=== PATIENT | male | born 1975 | race Caucasian/White ===

== ENCOUNTER 2016-07-11 12:36 | Emergency (ER) | payer OTHER ==
[~2016-07-11] VITALS: Ht 180.3 cm; Wt 104.5 kg
[2016-07-11 12:36] VITALS: BP 173/97; PULSE 91; RESP 14; TEMP 97.8; O2SAT 98
--- NOTE | 2016-07-11 12:49 | PD ---
Physical Exam Date Seen by Provider: Jul 11, 2016 Time Seen by Provider: 12:47 Narrative 41 year old male presents to the emergency department for evaluation of a laceration to his right 2nd digit that occurred while working on a car. Patient awaiting bed placement. Data Data Last Documented VS Vital Signs Date Time Temp Pulse Resp B/P Pulse Ox O2 Delivery O2 Flow Rate FiO2 07/11/16 12:36 97.8 91 14 173/97 98 MDM Supervised Visit with SHANE: Samanta Moya Jul 11, 2016 12:49
--- NOTE | 2016-07-11 12:51 | PD ---
HPI . right 2nd digit laceration Chief Complaint: Laceration/Skin Injury Time Seen by Provider: 12:52 Travel History International Travel<30 days: Yes Contact w/Intl Traveler<30days: Yes Name of Country Traveled to: [place] Traveled to known affect area: No History of Present Illness HPI 41year-old here with complaints of right second digit laceration while working on his truck. He was tightening something when he accidentally cut his finger. He immediately cleaned it out. He has a laceration over the PIP of the right index. He is uncertain of his last tetanus. He has is right handed dominant and has no other issues. [facility] Social History Alcohol Use: No Tobacco Use: No Substance Use: No Allergies-Medications (Allergen,Severity, Reaction): Coded Allergies: No Known Allergies (Unverified , 07/11/16) Reported Meds & Prescriptions Reported Meds & Active Scripts Active Reported Phenergan (Promethazine HCl) 25 Mg Tab 25 Mg PO Q6H PRN Tramadol (Tramadol HCl) 50 Mg Tab 50 Mg PO Q6H PRN Review of Systems General / Constitutional: No: Fever Eyes: No: Visual changes HENT: No: Headaches Cardiovascular: No: Chest Pain or Discomfort Respiratory: No: Shortness of Breath Gastrointestinal: No: Abdominal Pain Genitourinary: No: Dysuria Musculoskeletal: No: Pain Skin: Positive Other (finger laceration ), No Rash Neurologic: No: Weakness Psychiatric: No: Depression Endocrine: No: Polydipsia Hematologic/Lymphatic: No: Easy Bruising Physical Exam Narrative GENERAL: AAO x 3, no acute distress, Well-nourished, well-developed patient. SKIN: Warm and dry. No visible rashes or bruising. Small 1.3 cm laceration over the PIP of the right index finger. HEAD: Normocephalic and atraumatic. EYES: No scleral icterus. No injection or drainage. EOM intact, PERRLA ENT: No nasal drainage noted. Mucous membranes pink. Airway patent. NECK: Supple, trachea midline. No JVD. CARDIOVASCULAR: Regular rate and rhythm without murmurs, gallops, or rubs. RESPIRATORY: Breath sounds equal bilaterally. No accessory muscle use. No rhonchi or rales. GASTROINTESTINAL: Abdomen soft, non-tender, nondistended. EXTREMITIES: No cyanosis or edema. Small laceration over the PIP of the right index finger. Joint is mobile. There is no deformity. No tendon visualized. Sensation and range of motion is normal BACK: Nontender without obvious deformity. No CVA tenderness. PSYCH: AAO x 3, normal affect. Data Data Last Documented VS Vital Signs Date Time Temp Pulse Resp B/P Pulse Ox O2 Delivery O2 Flow Rate FiO2 07/11/16 12:36 97.8 91 14 173/97 98 Orders Lidocaine 1% Inj (50 Ml) (Xylocaine 1% I (07/11/16 13:00) Tetanus/Diphtheria Tox Adult (Tetanus/Di (07/11/16 13:00) MDM Medical Decision Making Medical Screen Exam Complete: Yes Emergency Medical Condition: Yes Medical Record Reviewed: Yes Differential Diagnosis right index finger laceration, abrasion, less likely amputation Narrative Course 41year-old here with complaints of right second digit laceration while working on his truck. He was tightening something when he accidentally cut his finger. He immediately cleaned it out. He has a laceration over the PIP of the right index. He is uncertain of his last tetanus. He has is right handed dominant and has no other issues. Patient seen and examined. He has a small 1.3 cm laceration over the PIP of the right index. He gave consent for laceration repair with sutures. Patient tolerated without incident. 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 Discussed wound care. Tetanus vaccine administered. Advised suture removal in 7-10 days. Tylenol and Motrin as needed for pain. Patient verbalized understanding of instructions, questions were answered, and thanked me for their care. I advised them if their condition worsens, please return to the nearest emergency room for further care. Procedures Procedure Narrative LACERATION LOCATION: right index dorsum over PIP joint LENGTH: 1.3 cm NUMBER OF STITCHES/ROSALIO: 3 REPAIR: The area of the laceration was prepped with Betadine and sterilely draped. The laceration was infiltrated with 1% lidocaine. The wound was copiously irrigated and explored without evidence of foreign body, tendon injury or neurovascular injury. The wound was closed using 4-0 Ethilon with simple interrupted sutures. This was a single layer repair. A sterile dressing was applied. The patient was advised to keep the dressing clean and dry. Patient tolerated the procedure well. Diagnosis Primary Impression: Laceration of right index finger Patient Instructions: Acute Wound Care (ED), Finger Laceration (ED), General Instructions Additional Instructions: Keep area clean and dry. Use gauze as we discussed and change 1-2 times a day. Watch for signs of infection: fever, redness, swelling, warmth, pus or drainage , red streaks around the cut, and increased pain from the area. If you received a tetanus shot, you may experience tenderness at the injection site. This is normal. Please return to emergency department if your symptoms return or worsen. Follow up with your primary care provider. You can use Tylenol or Motrin as needed for pain. The sutures will need to be removed within 7-10 days. You can come here or follow-up with your primary care provider. Disposition: 01 DISCHARGE HOME Condition: Stable Jacquie Michael Jul 11, 2016 12:51
[2016-07-11] MEDS ORDERED: TRAM50TA PO (12:54)
[2016-07-11] MEDS ORDERED: PROM25TA5 PO (12:54)
[2016-07-11] MEDS ORDERED: TETANUS/DIPHTHERIA TOXOID ADULT 0.5 ML VIAL IM ONE (13:00)
[2016-07-11] MEDS ORDERED: LIDOCAINE HCL 1% 50 ML VIAL INFIL ONE (13:00)
== END 2016-07-11 14:55 | disposition home or self-care (01) ==
LOC: NEPK 12:36
DX: S61.210A Laceration without foreign body of right index finger without damage to nail, initial encounter (principal); W45.8XXA Other foreign body or object entering through skin, initial encounter; Y92.009 Unspecified place in unspecified non-institutional (private) residence as the place of occurrence of the external cause; Z23 Encounter for immunization
CPT/HCPCS: 12001; 90471; 90714

== ENCOUNTER 2017-12-21 13:46 | Observation (INO) ==
[2017-12-21] MEDS ORDERED: Sod Chloride 0.9% Inj 1,000 ML IV.SIG ONE (14:09)
--- NOTE | 2017-12-21 14:20 | ED ---
HPI General Chief Complaint: Overdose Stated Complaint: overdose Time Seen by Provider: 12/21/17 14:09 Source: patient, EMS, RN notes reviewed and old records reviewed Mode of arrival: EMS Limitations: other (drowsy) History of Present Illness HPI Narrative: 42-year-old male presents by ambulance for intentionally taking approximately 15 Ambien to try and hurt himself. He states he was maybe having chest pain but is not sure. He denies other complaints but is drowsy so history is limited. This occurred approximately 2 hours ago MD complaint: intentional overdose Related Data Home Medications Medication Instructions Recorded Confirmed amlodipine-benazepril 1 cap PO DAILY 12/21/17 12/21/17 amoxicillin 500 mg PO TID 12/21/17 12/21/17 azilsartan med-chlorthalidone 1 tab PO DAILY 12/21/17 12/21/17 [Edarbyclor] buspirone 5 mg PO BID 12/21/17 12/21/17 losartan 100 mg PO DAILY 12/21/17 12/21/17 montelukast 10 mg PO QPM 12/21/17 12/21/17 tramadol 50 mg PO Q6H PRN 12/21/17 12/21/17 Allergies Allergy/AdvReac Type Severity Reaction Status Date / Time No Known Allergies Allergy Unverified 12/21/17 14:06 Review of Systems ROS Unobtainable ROS Unobtainable: unobtainable due to mental status PMFSH Medical History Medical History Anxiety (Acute) Hypercholesteremia (Acute) Hypertension (Acute) Social History Social History Substance History: No History of Abuse Second Hand Smoke Exposure: No Smoking Status: Never smoker How Often Do You Have a Drink Containing Alcohol: Monthly or less Recent Travel in [facility] within the Last 8 Weeks: No Recent Out of Country Travel within the Last 8 Weeks: No Immunization History Tetanus Immunization: <5 Years Hx Influenza Vaccine This Season: No Exam Narrative Exam Narrative: GENERAL: 42 y/o male whos drowsy but opens eyes to voice SKIN: Focused skin assessment warm/dry. HEAD: Atraumatic. Normocephalic. EYES: Pupils equal and round. No scleral icterus. No injection or drainage. ENT: No nasal bleeding or discharge. Mucous membranes pink and moist. NECK: Trachea midline. No JVD. CARDIOVASCULAR: Regular rate and rhythm. No murmur appreciated. RESPIRATORY: No accessory muscle use. Clear to auscultation. Breath sounds equal bilaterally. GASTROINTESTINAL: Abdomen soft, non-tender, nondistended. MUSCULOSKELETAL: No obvious deformities. No clubbing. No cyanosis. No edema. NEUROLOGICAL: Awake. moves all extremities, slurred speech Course Reevaluation(s) Reevaluation #1: patient still confused and pulling at monitor, will observe overnight for further medical clearance Consultations Consultation #1: dr joseph agrees to admit Initial Documented Vital Signs Temperature 98.5 F 12/21/17 14:06 Pulse Rate 123 H 12/21/17 14:06 Respiratory Rate 20 12/21/17 14:06 Blood Pressure 154/94 H 12/21/17 14:06 Pulse Oximetry 95 12/21/17 14:06 Last Documented Vital Signs Temperature 98.5 F 12/21/17 14:06 Pulse Rate 113 H 12/21/17 15:05 Respiratory Rate 22 12/21/17 15:05 Blood Pressure 127/88 12/21/17 15:05 Pulse Oximetry 95 12/21/17 15:[address] [facility] Narrative Medical decision making narrative: will check labs and monitor, xavier act placed Medical Screen Exam Complete: Yes Emergency Medical Condition: Yes Differential Diagnosis Differential Diagnosis: overdose, co-ingestion, electrolyte Lab Data Lab results reviewed: Yes I reviewed the patient's lab results. Result diagrams: 12/21/17 14:17 12/21/17 14:17 Lab Results 12/21/17 12/21/17 12/21/17 Range/Units 14:17 14:17 14:17 WBC 10.2 (4.0-11.0) th/mm3 RBC 5.68 (4.50-5.90) mil/mm3 Hgb 15.6 (13.0-17.0) gm/dL Hct 48.1 (39.0-51.0) % MCV 84.6 (80.0-100.0) fL MCH 27.5 (27.0-34.0) pg MCHC 32.5 (32.0-36.0) % RDW 13.4 (11.6-17.2) % Plt Count 266 (150-450) th/mm3 MPV 7.5 (7.0-11.0) fL Neut % (Auto) 70.2 H (16.0-70.0) % Lymph % (Auto) 18.3 (9.0-44.0) % [place] % (Auto) 8.1 H (0.0-8.0) % Eos % (Auto) 2.9 (0.0-4.0) % Baso % (Auto) 0.5 (0.0-2.0) % Neut # (Auto) 7.1 (1.8-7.7) th/mm3 Lymph # (Auto) 1.9 (1.0-4.8) th/mm3 [place] # (Auto) 0.8 (0.0-0.9) th/mm3 Eos # (Auto) 0.3 (0.0-0.4) th/mm3 Baso # (Auto) 0.1 (0.0-0.2) th/mm3 WBC Differential . Differential Comment Auto diff final PT 10.6 (9.8-11.6) sec INR 1.0 Ratio Sodium 140 (136-145) meq/L Potassium 4.2 (3.5-5.1) meq/L Chloride 106 (98-107) meq/L Carbon Dioxide 25.1 (21.0-32.0) meq/L Anion Gap 9 (5-15) meq/L BUN 15 (7-18) mg/dL Creatinine 1.27 (0.60-1.30) mg/dL Estimated GFR 62 L (>89) mL/min Random Glucose 104 (74-106) mg/dL Calcium 9.2 (8.5-10.1) mg/dL Total Bilirubin 0.2 (0.2-1.0) mg/dL AST 25 (15-37) U/L ALT 32 (12-78) U/L Alkaline Phosphatase 71 (45-117) U/L Total Creatine Kinase (39-308) U/L CK-MB (CK-2) (0.5-3.6) ng/mL Troponin I (0.02-0.05) ng/mL Total Protein 7.9 (6.4-8.2) g/dL Albumin 4.0 (3.4-5.0) g/dL Urine Color (Yellw/Straw) Urine Clarity (Clear) Urine pH (5.0-8.5) Ur Specific [place] (1.002-1.035) Urine Protein (Neg-Trace) mg/dL Urine Glucose (UA) (Negative) mg/dL Urine Ketones (Negative) mg/dL Urine Occult Blood (Negative) Urine Nitrate (Negative) Urine Bilirubin (Negative) Urine Urobilinogen (Less than 2) mg/dL Ur Leukocyte Esterase (Negative) Micro UA Comment Ur Microscopic Review Urine Culture Comments Salicylates (2.8-20.0) mg/dL Urine Opiates Screen (Neg) Acetaminophen Less than 2.0 L (10.0-30.0) mcg/mL Ur Barbiturates Screen (Neg) Ur Amphetamines Screen (Neg) U Benzodiazepines Scrn (Neg) Urine Cocaine Screen (Neg) U Cannabinoids Screen (Neg) Serum Alcohol Less than 3 (0-5) mg/dL 12/21/17 12/21/17 12/21/17 Range/Units 14:17 14:17 15:14 WBC (4.0-11.0) th/mm3 RBC (4.50-5.90) mil/mm3 Hgb (13.0-17.0) gm/dL Hct (39.0-51.0) % MCV (80.0-100.0) fL MCH (27.0-34.0) pg MCHC (32.0-36.0) % RDW (11.6-17.2) % Plt Count (150-450) th/mm3 MPV (7.0-11.0) fL Neut % (Auto) (16.0-70.0) % Lymph % (Auto) (9.0-44.0) % [place] % (Auto) (0.0-8.0) % Eos % (Auto) (0.0-4.0) % Baso % (Auto) (0.0-2.0) % Neut # (Auto) (1.8-7.7) th/mm3 Lymph # (Auto) (1.0-4.8) th/mm3 [place] # (Auto) (0.0-0.9) th/mm3 Eos # (Auto) (0.0-0.4) th/mm3 Baso # (Auto) (0.0-0.2) th/mm3 WBC Differential Differential Comment PT (9.8-11.6) sec INR Ratio Sodium (136-145) meq/L Potassium (3.5-5.1) meq/L Chloride (98-107) meq/L Carbon Dioxide (21.0-32.0) meq/L Anion Gap (5-15) meq/L BUN (7-18) mg/dL Creatinine (0.60-1.30) mg/dL Estimated GFR (>89) mL/min Random Glucose (74-106) mg/dL Calcium (8.5-10.1) mg/dL Total Bilirubin (0.2-1.0) mg/dL AST (15-37) U/L ALT (12-78) U/L Alkaline Phosphatase (45-117) U/L Total Creatine Kinase 122 (39-308) U/L CK-MB (CK-2) Less than 1.0 (0.5-3.6) ng/mL Troponin I Less than 0.02 L (0.02-0.05) ng/mL Total Protein (6.4-8.2) g/dL Albumin (3.4-5.0) g/dL Urine Color (Yellw/Straw) Urine Clarity (Clear) Urine pH (5.0-8.5) Ur Specific [place] (1.002-1.035) Urine Protein (Neg-Trace) mg/dL Urine Glucose (UA) (Negative) mg/dL Urine Ketones (Negative) mg/dL Urine Occult Blood (Negative) Urine Nitrate (Negative) Urine Bilirubin (Negative) Urine Urobilinogen (Less than 2) mg/dL Ur Leukocyte Esterase (Negative) Micro UA Comment Ur Microscopic Review Urine Culture Comments Salicylates Less than 1.7 L (2.8-20.0) mg/dL Urine Opiates Screen Neg (Neg) Acetaminophen (10.0-30.0) mcg/mL Ur Barbiturates Screen Neg (Neg) Ur Amphetamines Screen Neg (Neg) U Benzodiazepines Scrn Neg (Neg) Urine Cocaine Screen Neg (Neg) U Cannabinoids Screen Neg (Neg) Serum Alcohol (0-5) mg/dL 12/21/17 Range/Units 15:14 WBC (4.0-11.0) th/mm3 RBC (4.50-5.90) mil/mm3 Hgb (13.0-17.0) gm/dL Hct (39.0-51.0) % MCV (80.0-100.0) fL MCH (27.0-34.0) pg MCHC (32.0-36.0) % RDW (11.6-17.2) % Plt Count (150-450) th/mm3 MPV (7.0-11.0) fL Neut % (Auto) (16.0-70.0) % Lymph % (Auto) (9.0-44.0) % [place] % (Auto) (0.0-8.0) % Eos % (Auto) (0.0-4.0) % Baso % (Auto) (0.0-2.0) % Neut # (Auto) (1.8-7.7) th/mm3 Lymph # (Auto) (1.0-4.8) th/mm3 [place] # (Auto) (0.0-0.9) th/mm3 Eos # (Auto) (0.0-0.4) th/mm3 Baso # (Auto) (0.0-0.2) th/mm3 WBC Differential Differential Comment PT (9.8-11.6) sec INR Ratio Sodium (136-145) meq/L Potassium (3.5-5.1) meq/L Chloride (98-107) meq/L Carbon Dioxide (21.0-32.0) meq/L Anion Gap (5-15) meq/L BUN (7-18) mg/dL Creatinine (0.60-1.30) mg/dL Estimated GFR (>89) mL/min Random Glucose (74-106) mg/dL Calcium (8.5-10.1) mg/dL Total Bilirubin (0.2-1.0) mg/dL AST (15-37) U/L ALT (12-78) U/L Alkaline Phosphatase (45-117) U/L Total Creatine Kinase (39-308) U/L CK-MB (CK-2) (0.5-3.6) ng/mL Troponin I (0.02-0.05) ng/mL Total Protein (6.4-8.2) g/dL Albumin (3.4-5.0) g/dL Urine Color Yellow (Yellw/Straw) Urine Clarity Clear (Clear) Urine pH 7.0 (5.0-8.5) Ur Specific [place] 1.012 (1.002-1.035) Urine Protein Negative (Neg-Trace) mg/dL Urine Glucose (UA) Negative (Negative) mg/dL Urine Ketones Negative (Negative) mg/dL Urine Occult Blood Negative (Negative) Urine Nitrate Negative (Negative) Urine Bilirubin Negative (Negative) Urine Urobilinogen Less than 2 (Less than 2) mg/dL Ur Leukocyte Esterase Negative (Negative) Micro UA Comment Culture not ind Ur Microscopic Review Not Reportable Urine Culture Comments Culture not ind Salicylates (2.8-20.0) mg/dL Urine Opiates Screen (Neg) Acetaminophen (10.0-30.0) mcg/mL Ur Barbiturates Screen (Neg) Ur Amphetamines Screen (Neg) U Benzodiazepines Scrn (Neg) Urine Cocaine Screen (Neg) U Cannabinoids Screen (Neg) Serum Alcohol (0-5) mg/dL Imaging Data Attestation: I personally reviewed and interpreted this imaging study as follows : ECG Data Attestation: I personally reviewed and interpreted this ECG as follows: Interpretation: Sinus tachycardia at 120, no ST segment elevation or consecutive T-wave inversion Discharge Plan Discharge Disposition Patient Disposition: 30 Still Patient Discharge Condition Condition: Stable Discharge Details Diagnosis: Drug overdose Physicians Team ED Provider: Africa Quesada Primary Care Provider: UNKNOWN, Attending Provider: Zuly Joseph Status ED Status: Admitted Observation Patient
[2017-12-21] MEDS ORDERED: Sod Chloride 0.9% Inj 1,000 ML IV.SIG SCH (14:30)
[2017-12-21 14:39] LABS: Baso # (Auto) 0.1 th/mm3 (0.0-0.2); Baso % (Auto) 0.5 % (0.0-2.0); Eos # (Auto) 0.3 th/mm3 (0.0-0.4); Eos % (Auto) 2.9 % (0.0-4.0); Hematocrit 48.1 % (39.0-51.0); Hemoglobin 15.6 gm/dL (13.0-17.0); Lymph # (Auto) 1.9 th/mm3 (1.0-4.8); Lymph % (Auto) 18.3 % (9.0-44.0); Mean Corpuscular HGB Conc 32.5 % (32.0-36.0); Mean Corpuscular Hemoglobin 27.5 pg (27.0-34.0); Mean Corpuscular Volume 84.6 fL (80.0-100.0); Mean Platelet Volume 7.5 fL (7.0-11.0); Mono # (Auto) 0.8 th/mm3 (0.0-0.9); Mono % (Auto) 8.1 % (0.0-8.0); Neut # (Auto) 7.1 th/mm3 (1.8-7.7); Neut % (Auto) 70.2 % (16.0-70.0); Platelet Count 266 th/mm3 (150-450); Red Blood Count 5.68 mil/mm3 (4.50-5.90); Red Cell Distribution Width 13.4 % (11.6-17.2); White Blood Count 10.2 th/mm3 (4.0-11.0)
[2017-12-21 14:50] LABS: Prothrombin Time 10.6 sec (9.8-11.6)
[2017-12-21 15:09] LABS: Alanine Aminotransferase 32 U/L (12-78)
[2017-12-21 15:11] LABS: Alkaline Phosphatase 71 U/L (45-117); Total Protein 7.9 g/dL (6.4-8.2)
[2017-12-21 15:17] LABS: Anion Gap 9 meq/L (5-15); Aspartate Aminotransferase 25 U/L (15-37); Blood Urea Nitrogen 15 mg/dL (7-18); Calcium 9.2 mg/dL (8.5-10.1); Carbon Dioxide 25.1 meq/L (21.0-32.0); Chloride 106 meq/L (98-107); Glomerular Filtration Rate 62 mL/min (>89); Glucose,Random 104 mg/dL (74-106); Potassium 4.2 meq/L (3.5-5.1); Sodium 140 meq/L (136-145)
[2017-12-21 15:21] LABS: Creatine Kinase 122 U/L (39-308)
[2017-12-21 15:49] LABS: Bilirubin,Urine Negative (Negative); Clarity,Urine Clear (Clear); Color,Urine Yellow (Yellw/Straw); Glucose,Urine (UA) Negative (Negative); Leukocyte Esterase,Urine Negative (Negative); Nitrite,Urine Negative (Negative); Specific Gravity,Urine 1.012 (1.002-1.035)
[2017-12-21 15:53] LABS: Amphetamine Screen,Urine Neg (Neg); Barbiturate Screen,Urine Neg (Neg); Cannabinoid Screen,Urine Neg (Neg); Cocaine Screen,Urine Neg (Neg)
[2017-12-21 15:54] LABS: Opiate Screen,Urine Neg (Neg)
[2017-12-21] MEDS ORDERED: Bisacodyl 10 MG Supp RECTAL PRN (17:03)
[2017-12-21] MEDS: Sod Chloride 0.9% Inj 1,000 ML IV.CONT SCH (18:27)
[2017-12-21] MEDS: Enoxaparin Inj 40 MG/0.4 ML Syringe SQ SCH (18:27)
--- NOTE | 2017-12-21 19:28 | P.HP ---
History of Present Illness Primary Care Physician: UNKNOWN Chief Complaint: OD laura , accidentally per patient History of Present Illness: The patient is a pleasant 42-year-old male with past medical history of hypertension, stomach ulcers, insomnia, who presented to the emergency room for further evaluation after he ingested accidentally Ambien patient says when he tried to take him his Ambien many years coming out from the bottle accidentally he ingested all. Patient says she did not try to hurt himself. He does not have any suicidal homicidal ideation. Depressed. Does not have up psychiatry Dr. He states he was maybe having chest pain but is not sure. He denies other complaints was noted drowsy on admission. This occurred approximately 2 hours prior to coming to the emergency room. The patient is awake and alert. Following commands. Speech is normal. Review of Systems All other systems reviewed negative except as stated in HPI PMFSH - History History Provided By: Patient - Medical History Medical History: Medical History (Last Reviewed 12/21/17 @ 19:19 by Zuly Campos MD) Anxiety Hypercholesteremia Hypertension - Surgical History Surgical History: Surgical History (Last Reviewed 12/21/17 @ 19:19 by Zuly Campos MD) No history of previous surgery (Acute) - Family History Family History: Family History (Last Reviewed 12/21/17 @ 19:19 by Zuly Campos MD) Mother Hypertension Throat cancer Mother Hyperlipidemia - Tobacco History Second Hand Smoke Exposure: No Smoking Status: Never smoker - Alcohol History How Often Do You Have a Drink Containing Alcohol: Never - Substance Use History Substance History: No History of Abuse - Travel History Recent Travel in the [place] Within the Last 8 Weeks: No Recent Travel Out of the Country Within the Last 8 Weeks: No - Immunization History Tetanus Immunization: <5 Years Hx Influenza Vaccine This Season: No Medications and Allergies Active Medications: Active Medications Al Hydroxide/Mg Hydroxide (Milk Of Jose Liq) 30 ml PO Q12H PRN PRN Reason: Mild Constipation Bisacodyl (Dulcolax Supp) 10 mg RECTAL DAILY PRN PRN Reason: SEVERE CONSITIPATION Enoxaparin Sodium (Lovenox Inj) 40 mg SQ Q24H [facility] Last Admin: 12/21/17 18:27 Dose: 40 mg Sodium Chloride (Ns Inj) 1,000 mls @ 0 mls/hr IV.SIG BOLUS [facility] Last Infusion: 12/21/17 16:15 Dose: Infused Sodium Chloride (Ns Inj) 1,000 mls @ 100 mls/hr IV.CONT .Q10H [facility] Last Admin: 12/21/17 18:27 Dose: 100 mls/hr Lactulose (Lactulose Liq) 30 ml PO DAILY PRN PRN Reason: SEVERE CONSITIPATION Ondansetron HCl (Zofran Inj) 4 mg IV.PUSH Q6H PRN PRN Reason: NAUSEA OR VOMITING Senna/Docusate Sodium (Rebecca-Colace) 1 tab PO BID [facility] Sennosides (Senokot) 17.2 mg PO Q12H PRN PRN Reason: Moderate Constipation Allergies Allergy/AdvReac Type Severity Reaction Status Date / Time No Known Allergies Allergy Unverified 12/21/17 14:06 Home Medications Medication Instructions Recorded Confirmed Type amlodipine-benazepril 1 cap PO DAILY 12/21/17 12/21/17 History amoxicillin 500 mg PO TID 12/21/17 12/21/17 History azilsartan med-chlorthalidone 1 tab PO DAILY 12/21/17 12/21/17 History [Edarbyclor] buspirone 5 mg PO BID 12/21/17 12/21/17 History losartan 100 mg PO DAILY 12/21/17 12/21/17 History montelukast 10 mg PO QPM 12/21/17 12/21/17 History tramadol 50 mg PO Q6H PRN 12/21/17 12/21/17 History Exam Vital signs: Vital Signs 12/21/17 14:06 12/21/17 14:30 12/21/17 15:05 Temperature 98.5 F Pulse Rate 123 H 113 H Respiratory Rate 20 22 Blood Pressure 154/94 H 127/88 Pulse Oximetry 95 95 95 12/21/17 17:05 12/21/17 18:56 Temperature 98.6 F 97.7 F Pulse Rate 106 H 96 H Respiratory Rate 22 20 Blood Pressure 177/102 H 142/89 H Pulse Oximetry 98 96 Intake & Output 12/21/17 12/21/17 12/22/17 06:59 18:59 06:59 Intake Total 1999 Balance 1999 Weight 104.326 kg Intake: IV 1999 NS Inj 1,000 ML @ Wide Open IV. 1999 SIG BOLUS [facility] Rx#:[id number] Other: Date of Last Bowel Movement 12/21/17 Narrative: GENERAL: Pleasant 42-year-old male awake and alert appears to not acute distress. SKIN: Warm and dry. HEAD: Atraumatic. Normocephalic. EYES: Pupils equal and round. No scleral icterus. No injection or drainage. ENT: No nasal bleeding or discharge. Mucous membranes pink and moist. NECK: Trachea midline. No JVD. CARDIOVASCULAR: Regular rate and rhythm. RESPIRATORY: No accessory muscle use. Clear to auscultation. Breath sounds equal bilaterally. GASTROINTESTINAL: Abdomen soft, non-tender, nondistended. Hepatic and splenic margins not palpable. MUSCULOSKELETAL: Extremities without clubbing, cyanosis, or edema. No obvious deformities. NEUROLOGICAL: Awake and alert. Oriented by 4 no obvious cranial nerve deficits. Motor grossly within normal limits. Five out of 5 muscle strength in the arms and legs. Normal speech. PSYCHIATRIC: Appropriate mood and affect; insight and judgment normal. Results - Labs CBC & Chem 7: 12/21/17 14:17 12/21/17 14:17 Labs: Laboratory Results - last 24 hr 12/21/17 12/21/17 12/21/17 14:17 14:17 14:17 WBC 10.2 RBC 5.68 Hgb 15.6 Hct 48.1 MCV 84.6 MCH 27.5 MCHC 32.5 RDW 13.4 Plt Count 266 MPV 7.5 Neut % (Auto) 70.2 H Lymph % (Auto) 18.3 [place] % (Auto) 8.1 H Eos % (Auto) 2.9 Baso % (Auto) 0.5 Neut # (Auto) 7.1 Lymph # (Auto) 1.9 [place] # (Auto) 0.8 Eos # (Auto) 0.3 Baso # (Auto) 0.1 WBC Differential . Differential Comment Auto diff final PT 10.6 INR 1.0 Sodium 140 Potassium 4.2 Chloride 106 Carbon Dioxide 25.1 Anion Gap 9 BUN 15 Creatinine 1.27 Estimated GFR 62 L Random Glucose 104 Calcium 9.2 Total Bilirubin 0.2 AST 25 ALT 32 Alkaline Phosphatase 71 Total Creatine Kinase CK-MB (CK-2) Troponin I Total Protein 7.9 Albumin 4.0 Urine Color Urine Clarity Urine pH Ur Specific [place] Urine Protein Urine Glucose (UA) Urine Ketones Urine Occult Blood Urine Nitrate Urine Bilirubin Urine Urobilinogen Ur Leukocyte Esterase Micro UA Comment Ur Microscopic Review Urine Culture Comments Salicylates Urine Opiates Screen Acetaminophen Less than 2.0 L Ur Barbiturates Screen Ur Amphetamines Screen U Benzodiazepines Scrn Urine Cocaine Screen U Cannabinoids Screen Serum Alcohol Less than 3 12/21/17 12/21/17 12/21/17 14:17 14:17 15:14 WBC RBC Hgb Hct MCV MCH MCHC RDW Plt Count MPV Neut % (Auto) Lymph % (Auto) [place] % (Auto) Eos % (Auto) Baso % (Auto) Neut # (Auto) Lymph # (Auto) [place] # (Auto) Eos # (Auto) Baso # (Auto) WBC Differential Differential Comment PT INR Sodium Potassium Chloride Carbon Dioxide Anion Gap BUN Creatinine Estimated GFR Random Glucose Calcium Total Bilirubin AST ALT Alkaline Phosphatase Total Creatine Kinase 122 CK-MB (CK-2) Less than 1.0 Troponin I Less than 0.02 L Total Protein Albumin Urine Color Urine Clarity Urine pH Ur Specific [place] Urine Protein Urine Glucose (UA) Urine Ketones Urine Occult Blood Urine Nitrate Urine Bilirubin Urine Urobilinogen Ur Leukocyte Esterase Micro UA Comment Ur Microscopic Review Urine Culture Comments Salicylates Less than 1.7 L Urine Opiates Screen Neg Acetaminophen Ur Barbiturates Screen Neg Ur Amphetamines Screen Neg U Benzodiazepines Scrn Neg Urine Cocaine Screen Neg U Cannabinoids Screen Neg Serum Alcohol 12/21/17 15:14 WBC RBC Hgb Hct MCV MCH MCHC RDW Plt Count MPV Neut % (Auto) Lymph % (Auto) [place] % (Auto) Eos % (Auto) Baso % (Auto) Neut # (Auto) Lymph # (Auto) [place] # (Auto) Eos # (Auto) Baso # (Auto) WBC Differential Differential Comment PT INR Sodium Potassium Chloride Carbon Dioxide Anion Gap BUN Creatinine Estimated GFR Random Glucose Calcium Total Bilirubin AST ALT Alkaline Phosphatase Total Creatine Kinase CK-MB (CK-2) Troponin I Total Protein Albumin Urine Color Yellow Urine Clarity Clear Urine pH 7.0 Ur Specific [place] 1.012 Urine Protein Negative Urine Glucose (UA) Negative Urine Ketones Negative Urine Occult Blood Negative Urine Nitrate Negative Urine Bilirubin Negative Urine Urobilinogen Less than 2 Ur Leukocyte Esterase Negative Micro UA Comment Culture not ind Ur Microscopic Review Not Reportable Urine Culture Comments Culture not ind Salicylates Urine Opiates Screen Acetaminophen Ur Barbiturates Screen Ur Amphetamines Screen U Benzodiazepines Scrn Urine Cocaine Screen U Cannabinoids Screen Serum Alcohol Caprini VTE Risk Assessment Caprini VTE Risk Assessment: Moderate/High Risk (score >= 2) Caprini Risk Assessment Model: Point Value = 1 Point Value = 2 Point Value = 3 Point Value = 5 Age 41-60 Minor surgery BMI > 25 kg/m2 Swollen legs Varicose veins or History of unexplained or recurrent spontaneous Oral contraceptives or hormone replacement Sepsis (< 1 month) Serious lung disease, including pneumonia (< 1 month) Abnormal pulmonary function Acute myocardial infarction Congestive heart failure (< 1 month) History of inflammatory bowel disease Medical patient at bed rest Age 61-74 Arthroscopic surgery Major open surgery (> 45 min) Laparoscopic surgery (> 45 min) Malignancy Confined to bed (> 72 hours) Immobilizing plaster cast Central venous access Age >= 75 History of VTE Family history of VTE Factor V Leiden Prothrombin [id number] Lupus anticoagulant Anticardiolipin antibodies Elevated serum homocysteine Heparin-induced thrombocytopenia Other congenital or acquired thrombophilia Stroke (< 1 month) Elective arthroplasty Hip, pelvis, or leg fracture Acute spinal cord injury (< 1 month) Prophylaxis Regimen: Total Risk Factor Score Risk Level Prophylaxis Regimen 0-1 Low Early ambulation 2 Moderate Order ONE of the following: *Sequential Compression Device (SCD) *Heparin 5000 units SQ BID 3-4 Higher Order ONE of the following medications: *Heparin 5000 units SQ TID *Enoxaparin/Lovenox 40 mg SQ daily (WT < 150 kg, CrCl > 30 mL/min) *Enoxaparin/Lovenox 30 mg SQ daily (WT < 150 kg, CrCl > 10-29 mL/min) *Enoxaparin/Lovenox 30 mg SQ BID (WT < 150 kg, CrCl > 30 mL/min) AND/OR *Sequential Compression Device (SCD) 5 or more Highest Order ONE of the following medications: *Heparin 5000 units SQ TID (Preferred with Epidurals) *Enoxaparin/Lovenox 40 mg SQ daily (WT < 150 kg, CrCl > 30 mL/min) *Enoxaparin/Lovenox 30 mg SQ daily (WT < 150 kg, CrCl > 10-29 mL/min) *Enoxaparin/Lovenox 30 mg SQ BID (WT < 150 kg, CrCl > 30 mL/min) AND *Sequential Compression Device (SCD) Assessment and Plan - Plan 42-year-old male with Acute ambien overdose, per patient accidentally Acute encephalopathy on arrival in the emergency room however patient improved is alert and oriented by 4 Do Neurochecks Monitor patient on telemetry as noted tachycardic EKG: Sinus tachycardia at 120, no ST segment elevation or consecutive T-wave inversion HTN, anxiety, insomnia Restart home meds as appropriate Hold narcotics or benzos DVT ppx scd/teds Code Status: full code Discussed Condition With: pt, nurse, ED physician
[2017-12-21] MEDS: Senna/Docusate Sodium 8.6/50 MG Tablet PO SCH (22:05)
[2017-12-22] MEDS: Sod Chloride 0.9% Inj 1,000 ML IV.CONT SCH ×2 (03:50→17:30)
[2017-12-22 07:05] LABS: Baso % (Auto) 0.5 % (0.0-2.0); Eos # (Auto) 0.6 th/mm3 (0.0-0.4); Eos % (Auto) 6.4 % (0.0-4.0); Hematocrit 43.4 % (39.0-51.0); Hemoglobin 14.6 gm/dL (13.0-17.0); Lymph # (Auto) 2.5 th/mm3 (1.0-4.8); Lymph % (Auto) 26.1 % (9.0-44.0); Mean Corpuscular HGB Conc 33.5 % (32.0-36.0); Mean Corpuscular Hemoglobin 27.9 pg (27.0-34.0); Mean Corpuscular Volume 83.3 fL (80.0-100.0); Mean Platelet Volume 7.5 fL (7.0-11.0); Mono # (Auto) 0.7 th/mm3 (0.0-0.9); Mono % (Auto) 7.3 % (0.0-8.0); Neut # (Auto) 5.8 th/mm3 (1.8-7.7); Neut % (Auto) 59.7 % (16.0-70.0); Platelet Count 240 th/mm3 (150-450); Red Blood Count 5.22 mil/mm3 (4.50-5.90); Red Cell Distribution Width 13.5 % (11.6-17.2); White Blood Count 9.8 th/mm3 (4.0-11.0)
[2017-12-22 07:43] LABS: Alanine Aminotransferase 31 U/L (12-78); Albumin 3.4 g/dL (3.4-5.0); Alkaline Phosphatase 68 U/L (45-117); Anion Gap 10 meq/L (5-15); Aspartate Aminotransferase 23 U/L (15-37); Blood Urea Nitrogen 11 mg/dL (7-18); Calcium 7.9 mg/dL (8.5-10.1); Carbon Dioxide 23.4 meq/L (21.0-32.0); Chloride 110 meq/L (98-107); Glomerular Filtration Rate 71 mL/min (>89); Glucose,Random 145 mg/dL (74-106); Sodium 143 meq/L (136-145); Total Protein 7.1 g/dL (6.4-8.2)
[2017-12-22 07:45] LABS: Potassium 3.6 meq/L (3.5-5.1)
--- NOTE | 2017-12-22 08:03 | ECG ---
Date Performed: 12/21/2017 Time Performed: 14:06:03 PTAGE: 42 years EKG: SINUS TACHYCARDIA BORDERLINE LEFT AXIS DEVIATION ABNORMAL RHYTHM ECG NO PREVIOUS TRACING FOR COMPARISON DOCTOR: Hayley Reyes Interpretating Date/Time 12/22/2017 08:02:41
--- NOTE | 2017-12-22 09:20 | P.PN ---
Subjective Interval history: Follow up for accidental ambien overdose and encephalopathy. The patient is currently awake, alert, oriented 4. He states taking multiple Ambien tablets was an accident. He denies feeling depressed or suicidal. He has no history of psychiatric illness or suicidal attempts. He wants to go home. He denies any headache, lightheadedness, dizziness, chest pain, shortness breath, or abdominal complaints. Patient reports he does have a history of chronic pancreatitis and gastric ulcers, takes medications for this at home, and follows with braided band assembler Dr. Aguila. Patient states he did have some epigastric discomfort yesterday, but denies any chest pain. He states the epigastric pain was typical of his heartburn and pancreatitis flares. He denies any chest or epigastric pain today, and he is tolerating oral intake without any nausea/vomiting. He has no other medical complaints at this time. Physical Exam Vital signs: Vital Signs 12/21/17 14:06 12/21/17 14:30 12/21/17 15:05 Temperature 98.5 F Pulse Rate 123 H 113 H Respiratory Rate 20 22 Blood Pressure 154/94 H 127/88 Pulse Oximetry 95 95 95 12/21/17 17:05 12/21/17 18:56 12/21/17 20:00 Temperature 98.6 F 97.7 F Pulse Rate 106 H 96 H Respiratory Rate 22 20 Blood Pressure 177/102 H 142/89 H Pulse Oximetry 98 96 96 12/21/17 23:32 12/22/17 04:00 12/22/17 08:09 Temperature 97.9 F 98.4 F 98.5 F Pulse Rate 88 74 89 Respiratory Rate 20 19 18 Blood Pressure 161/87 H 139/84 155/88 H Pulse Oximetry 94 L 92 L 91 L Intake & Output 12/21/17 12/22/17 12/22/17 18:59 06:59 18:59 Intake Total 1999 1000 / 1000 Balance 1999 1000 / 1000 Weight 104.326 kg Intake: IV 1999 / 999 NS Inj 1,000 ML @ 100 mls/hr IV 999 / 999 .CONT .Q10H [facility] Rx#:[id number] NS Inj 1,000 ML @ Wide Open IV. 1999 SIG BOLUS [facility] Rx#:[id number] Other: # Voids 2 Date of Last Bowel Movement 12/21/17 Narrative: GENERAL: Well-nourished, well-developed middle-aged male patient in NAD. SKIN: Warm and dry. No rash. HEENT: Normocephalic. Atraumatic. Pupils equal and round. Mucous membranes pink and moist. NECK: Supple. Trachea midline. CARDIOVASCULAR: Regular rate and rhythm. No murmur appreciated. RESPIRATORY: No accessory muscle use. Clear to auscultation. Breath sounds equal bilaterally. GASTROINTESTINAL: Abdomen soft, non-tender, nondistended. Normoactive bowel sounds x4. MUSCULOSKELETAL: No obvious deformities. Extremities without clubbing, cyanosis , or edema. NEUROLOGICAL: Awake and alert. No obvious cranial nerve deficits. Motor grossly within normal limits. Moving all extremities spontaneously. Normal speech. PSYCHIATRIC: Appropriate mood and affect; insight and judgment normal. Results - Labs CBC & Chem 7: 12/22/17 06:25 12/22/17 06:25 Laboratory Results - last 24 hr 12/21/17 12/21/17 12/21/17 14:17 14:17 14:17 WBC 10.2 RBC 5.68 Hgb 15.6 Hct 48.1 MCV 84.6 MCH 27.5 MCHC 32.5 RDW 13.4 Plt Count 266 MPV 7.5 Neut % (Auto) 70.2 H Lymph % (Auto) 18.3 [place] % (Auto) 8.1 H Eos % (Auto) 2.9 Baso % (Auto) 0.5 Neut # (Auto) 7.1 Lymph # (Auto) 1.9 [place] # (Auto) 0.8 Eos # (Auto) 0.3 Baso # (Auto) 0.1 WBC Differential . Differential Comment Auto diff final PT 10.6 INR 1.0 Sodium 140 Potassium 4.2 Chloride 106 Carbon Dioxide 25.1 Anion Gap 9 BUN 15 Creatinine 1.27 Estimated GFR 62 L Random Glucose 104 Calcium 9.2 Total Bilirubin 0.2 AST 25 ALT 32 Alkaline Phosphatase 71 Total Creatine Kinase CK-MB (CK-2) Troponin I Total Protein 7.9 Albumin 4.0 Urine Color Urine Clarity Urine pH Ur Specific [place] Urine Protein Urine Glucose (UA) Urine Ketones Urine Occult Blood Urine Nitrate Urine Bilirubin Urine Urobilinogen Ur Leukocyte Esterase Micro UA Comment Ur Microscopic Review Urine Culture Comments Salicylates Urine Opiates Screen Acetaminophen Less than 2.0 L Ur Barbiturates Screen Ur Amphetamines Screen U Benzodiazepines Scrn Urine Cocaine Screen U Cannabinoids Screen Serum Alcohol Less than 3 12/21/17 12/21/17 12/21/17 14:17 14:17 15:14 WBC RBC Hgb Hct MCV MCH MCHC RDW Plt Count MPV Neut % (Auto) Lymph % (Auto) [place] % (Auto) Eos % (Auto) Baso % (Auto) Neut # (Auto) Lymph # (Auto) [place] # (Auto) Eos # (Auto) Baso # (Auto) WBC Differential Differential Comment PT INR Sodium Potassium Chloride Carbon Dioxide Anion Gap BUN Creatinine Estimated GFR Random Glucose Calcium Total Bilirubin AST ALT Alkaline Phosphatase Total Creatine Kinase 122 CK-MB (CK-2) Less than 1.0 Troponin I Less than 0.02 L Total Protein Albumin Urine Color Urine Clarity Urine pH Ur Specific [place] Urine Protein Urine Glucose (UA) Urine Ketones Urine Occult Blood Urine Nitrate Urine Bilirubin Urine Urobilinogen Ur Leukocyte Esterase Micro UA Comment Ur Microscopic Review Urine Culture Comments Salicylates Less than 1.7 L Urine Opiates Screen Neg Acetaminophen Ur Barbiturates Screen Neg Ur Amphetamines Screen Neg U Benzodiazepines Scrn Neg Urine Cocaine Screen Neg U Cannabinoids Screen Neg Serum Alcohol 12/21/17 12/22/17 12/22/17 15:14 06:25 06:25 WBC 9.8 RBC 5.22 Hgb 14.6 Hct 43.4 MCV 83.3 MCH 27.9 MCHC 33.5 RDW 13.5 Plt Count 240 MPV 7.5 Neut % (Auto) 59.7 Lymph % (Auto) 26.1 [place] % (Auto) 7.3 Eos % (Auto) 6.4 H Baso % (Auto) 0.5 Neut # (Auto) 5.8 Lymph # (Auto) 2.5 [place] # (Auto) 0.7 Eos # (Auto) 0.6 H Baso # (Auto) 0.0 WBC Differential . Differential Comment Auto diff final PT INR Sodium 143 Potassium 3.6 Chloride 110 H Carbon Dioxide 23.4 Anion Gap 10 BUN 11 Creatinine 1.12 Estimated GFR 71 L Random Glucose 145 H Calcium 7.9 L D Total Bilirubin 0.3 AST 23 ALT 31 Alkaline Phosphatase 68 Total Creatine Kinase CK-MB (CK-2) Troponin I Total Protein 7.1 D Albumin 3.4 D Urine Color Yellow Urine Clarity Clear Urine pH 7.0 Ur Specific [place] 1.012 Urine Protein Negative Urine Glucose (UA) Negative Urine Ketones Negative Urine Occult Blood Negative Urine Nitrate Negative Urine Bilirubin Negative Urine Urobilinogen Less than 2 Ur Leukocyte Esterase Negative Micro UA Comment Culture not ind Ur Microscopic Review Not Reportable Urine Culture Comments Culture not ind Salicylates Urine Opiates Screen Acetaminophen Ur Barbiturates Screen Ur Amphetamines Screen U Benzodiazepines Scrn Urine Cocaine Screen U Cannabinoids Screen Serum Alcohol 12/22/17 06:25 WBC RBC Hgb Hct MCV MCH MCHC RDW Plt Count MPV Neut % (Auto) Lymph % (Auto) [place] % (Auto) Eos % (Auto) Baso % (Auto) Neut # (Auto) Lymph # (Auto) [place] # (Auto) Eos # (Auto) Baso # (Auto) WBC Differential Differential Comment PT INR Sodium Potassium Chloride Carbon Dioxide Anion Gap BUN Creatinine Estimated GFR Random Glucose Calcium Total Bilirubin AST ALT Alkaline Phosphatase Total Creatine Kinase CK-MB (CK-2) Troponin I Less than 0.02 L Total Protein Albumin Urine Color Urine Clarity Urine pH Ur Specific [place] Urine Protein Urine Glucose (UA) Urine Ketones Urine Occult Blood Urine Nitrate Urine Bilirubin Urine Urobilinogen Ur Leukocyte Esterase Micro UA Comment Ur Microscopic Review Urine Culture Comments Salicylates Urine Opiates Screen Acetaminophen Ur Barbiturates Screen Ur Amphetamines Screen U Benzodiazepines Scrn Urine Cocaine Screen U Cannabinoids Screen Serum Alcohol Assessment and Plan - Plan 42-year-old male with history of hypertension, hyperlipidemia, anxiety, chronic pancreatitis, gastric ulcers, GERD, presents after an accidental overdose on Ambien Ambien overdose with acute encephalopathy: Patient reports accidentally ingesting the rest of his Ambien from his pill bottle. Denies any depression or suicidal ideations. -UDS negative -Galarza act in place, sitter at bedside -Neuro checks, monitor on telemetry -EKG reviewed, shows sinus tachycardia, no acute ST changes -Patient now AAO 4 -Psychiatry consulted, awaiting evaluation Hypertension/Hyperlipidemia: chronic -continue patient's home medications -Monitor BP, adjust antihypertensives as needed Chronic Pancreatitis/GERD/Gastric Ulcers: chronic -no current GI complaints, tolerating oral intake -continue home meds -Continue outpatient f/up with braided band assembler Dr. Aguila DVT Prophylaxis: Lovenox sq Discharge Planning: The patient is medically stable. Await further evaluation by psychiatry. Discussed with Dr. Alvarado, recommends admission to inpatient psychiatry. The patient is medically stable for discharge to inpatient psych. Discharge patient to inpatient psychiatry unit Condition on discharge: Improved Cardiac Diet as tolerated Ad Tali activity Rx written: no new meds Follow-up with primary care physician within 1 week
[2017-12-22] MEDS ORDERED: Lisinopril 10 MG Tablet PO SCH (11:30)
[2017-12-22] MEDS ORDERED: amLODIPine 5 MG Tablet PO SCH (11:30)
[2017-12-22] MEDS: Senna/Docusate Sodium 8.6/50 MG Tablet PO SCH (11:49)
[2017-12-22 11:58] VITALS: RESP 16
--- NOTE | 2017-12-22 13:14 | P.CONPSY ---
Provisional Diagnosis Admission Date: December 21, 2017 16:43 [place] I.: 1. Adjustment reaction with disturbance of emotions and conduct [place] II.: Deferred History of Present Illness Service: Psychiatry Consult date: 12/22/17 Requesting Physician: Ani Hernandez Reason for Consult: Galarza Act, overdose Primary Care Provider: UNKNOWN Chief Complaint: OD ambien , accidentally per patient History of Present Illness: Mr. Little is a 42-year-old male with a reported childhood history of ADHD but no adult psychiatric history per his report who presented to the ED following an overdose on Ambien. It is documented in the ED provider notes that the patient took 15 Ambien intentionally in a suicide attempt. However according to the H&P from the medical attending, the patient reports that this ingestion was accidental. Patient was placed under Galarza act by the ED provider and placed in observation in the CDU. Reviewing the electronic medical record, I see no previous psychiatric contact within our system. Patient seen and examined. Chart reviewed. Case discussed with mid-level provider in the CDU. Sitter is at the bedside. On my examination today, the patient is calm and cooperative with exam. He tells me that he came home from work early and wanted to get some rest and so he took 3 extra Ambien CR 12.5 mg tablets. He says that he fell asleep and was subsequently discovered by his who reportedly had the patient brought in. He denies that ingestion was a suicide attempt. 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 He denies any depressive symptoms, nor can I elicit any hypomanic or manic symptoms. He denies any audiovisual hallucinations. I can elicit no delusional material. He does admit to chronic difficulties with sleep saying that he runs over business material in his head when he is trying to sleep. Remainder of the psychiatric ROS is negative. No acute physical complaints. Past psychiatric history: Patient reports a history of ADHD as a child. He says that he was seen by psychiatrists in this context as a child. He denies a history of psychiatric admissions or suicide attempts. Family history: Patient reports that his mother has depression. He denies a family history of substance use disorder or suicide. Chemical dependency history: The patient denies any abuse of drugs or alcohol. Social history: The patient lives with his . He has 4 children ages 21, 18 , 14 and 12. He has his GED and also trade school. 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 No reported PTSD symptoms. He denies any legal history. He does keep several firearms but has never had a suicide plan involving a gun. He is a Restorationist. With the patient's permission, I have obtained collateral information from his Uzma over the phone. Uzma is a somewhat reluctant historian saying "I worry that he is going to blame me. I do not want your decision to be based on her conversation." She reports that the patient did not take 3 Ambien but more likely took 25-27 Ambien. She thinks that he has been depressed recently. 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 She also notes that she does not think that he handles stress well. I spent about 23 minutes in telephone interview with Uzma. Review of Systems All other systems reviewed negative except as stated in HPI [facility] - History History Provided By: Patient - Medical History Medical History: Medical History (Last Reviewed 12/21/17 @ 19:19 by Zuly Campos MD) Anxiety Hypercholesteremia Hypertension - Surgical History Surgical History: Surgical History (Last Reviewed 12/21/17 @ 19:19 by Zuly Campos MD) No history of previous surgery (Acute) - Family History Family History: Family History (Last Reviewed 12/21/17 @ 19:19 by Zuly Campos MD) Mother Hypertension Throat cancer Mother Hyperlipidemia - Tobacco History Second Hand Smoke Exposure: No Smoking Status: Never smoker - Alcohol History How Often Do You Have a Drink Containing Alcohol: Never - Substance Use History Substance History: No History of Abuse - Travel History Recent Travel in the USA Within the Last 8 Weeks: No Recent Travel Out of the Country Within the Last 8 Weeks: No - Immunization History Tetanus Immunization: <5 Years Hx Influenza Vaccine This Season: No Medications and Allergies Active Medications: Active Medications Al Hydroxide/Mg Hydroxide (Milk Of Jose Frank) 30 ml PO Q12H PRN PRN Reason: Mild Constipation Amlodipine Besylate (Norvasc) 5 mg PO DAILY [facility] Last Admin: 12/22/17 11:50 Dose: 5 mg Bisacodyl (Dulcolax Supp) 10 mg RECTAL DAILY PRN PRN Reason: SEVERE CONSITIPATION Buspirone HCl (Buspar) 5 mg PO BID [facility] Last Admin: 12/22/17 11:50 Dose: 5 mg Enoxaparin Sodium (Lovenox Inj) 40 mg SQ Q24H [facility] Last Admin: 12/21/17 18:27 Dose: 40 mg Sodium Chloride (Ns Inj) 1,000 mls @ 0 mls/hr IV.SIG BOLUS [facility] Last Infusion: 12/21/17 16:15 Dose: Infused Sodium Chloride (Ns Inj) 1,000 mls @ 100 mls/hr IV.CONT .Q10H [facility] Last Admin: 12/22/17 03:50 Dose: 100 mls/hr Lactulose (Lactulose Liq) 30 ml PO DAILY PRN PRN Reason: SEVERE CONSITIPATION Lisinopril (Prinivil) 10 mg PO DAILY [facility] Last Admin: 12/22/17 11:50 Dose: 10 mg Ondansetron HCl (Zofran Inj) 4 mg IV.PUSH Q6H PRN PRN Reason: NAUSEA OR VOMITING Last Admin: 12/22/17 11:54 Dose: 4 mg Senna/Docusate Sodium (Rebecca-Colace) 1 tab PO BID [facility] Last Admin: 12/22/17 11:49 Dose: Not Given Sennosides (Senokot) 17.2 mg PO Q12H PRN PRN Reason: Moderate Constipation Allergies Allergy/AdvReac Type Severity Reaction Status Date / Time No Known Allergies Allergy Unverified 12/21/17 14:06 Home Medications Medication Instructions Recorded Confirmed Type amlodipine-benazepril 1 cap PO DAILY 12/21/17 12/21/17 History amoxicillin 500 mg PO TID 12/21/17 12/21/17 History azilsartan med-chlorthalidone 1 tab PO DAILY 12/21/17 12/21/17 History [Edarbyclor] buspirone 5 mg PO BID 12/21/17 12/21/17 History losartan 100 mg PO DAILY 12/21/17 12/21/17 History montelukast 10 mg PO QPM 12/21/17 12/21/17 History tramadol 50 mg PO Q6H PRN 12/21/17 12/21/17 History Exam Vital signs: Vital Signs 12/21/17 14:06 12/21/17 14:30 12/21/17 15:05 Temperature 98.5 F Pulse Rate 123 H 113 H Respiratory Rate 20 22 Blood Pressure 154/94 H 127/88 Pulse Oximetry 95 95 95 12/21/17 17:05 12/21/17 18:56 12/21/17 20:00 Temperature 98.6 F 97.7 F Pulse Rate 106 H 96 H Respiratory Rate 22 20 Blood Pressure 177/102 H 142/89 H Pulse Oximetry 98 96 96 12/21/17 23:32 12/22/17 04:00 12/22/17 08:09 Temperature 97.9 F 98.4 F 98.5 F Pulse Rate 88 74 89 Respiratory Rate 20 19 18 Blood Pressure 161/87 H 139/84 155/88 H Pulse Oximetry 94 L 92 L 91 L 12/22/17 11:57 Temperature 98.4 F Pulse Rate 78 Respiratory Rate 16 Blood Pressure 181/96 H Pulse Oximetry 96 Intake & Output 12/21/17 12/22/17 12/22/17 18:59 06:59 18:59 Intake Total 1999 1000 / 1000 Balance 1999 1000 / 1000 Weight 104.326 kg Intake: IV 1999 1000 / 1000 NS Inj 1,000 ML @ 100 mls/hr IV 1000 / 1000 .CONT .Q10H [facility] Rx#:[id number] NS Inj 1,000 ML @ Wide Open IV. 1999 SIG BOLUS [facility] Rx#:[id number] Other: # Voids 2 Date of Last Bowel Movement 12/21/17 Narrative: Physical examination completed by primary team attending. On my examination today, the patient appears to be in no acute physical distress. No signs of intoxication or withdrawal noted. Labs and vital signs reviewed. Mental Status Examination Appearance: Appropriate Consciousness: Alert Orientation: Person, Place (At least) Motor Activity: Other (No motor abnormalities noted) Speech: Unremarkable Language: Adequate Fund of Knowledge: Adequate Attention and Concentration: Adequate Memory: Unremarkable (Grossly intact on clinical exam) Mood: Appropriate Affect: Appropriate Thought Process & Associations: Intact Thought Content: Appropriate Hallucination Type: None Delusion Type: None Suicidal Ideation: No (Unclear whether patient is reliable to contract for safety) Suicidal Plan: No Suicidal Intention: No Homicidal Ideation: No Homicidal Plan: No Homicidal Intention: No Mental Status Exam Remarks: Insight and judgment are unclear Assessment and Plan - Assessment (1) Adjustment disorder with mixed disturbance of emotions and conduct Code(s): F43.25 - Adjustment disorder with mixed disturbance of emotions and conduct Status: Acute - Plan Plan: 42-year-old female with psychiatric history as detailed above who is presently in the CDU under a Galarza act following an Ambien overdose. Patient reports he only took a few extra tablets of Ambien but collateral information from patient' s indicates that the patient took far larger quantity. I fear that he is minimizing psychiatric symptomatology and also minimizing the extent and intent of his overdose, particularly in light of collateral information obtained from . I do not think it is appropriate to lift the Galarza act at this time, and the patient will require psychiatric hospitalization following medical clearance for observation for any ongoing impairments in safety. Recommend continuing a sitter while the patient is hospitalized in the CDU. Defer any medication management to the inpatient team. Case discussed with mid-level provider for the primary team. Thank you very much for this consultation. Please call or page with questions. Justification for Continued Inpatient Stay: See above
[2017-12-22] MEDS: Enoxaparin Inj 40 MG/0.4 ML Syringe SQ SCH (17:31)
[2017-12-22 20:01] VITALS: BP 138/97; PULSE 88; TEMP 98.7; O2SAT 97
== END 2017-12-22 20:57 ==
LOC: NEDA 13:46 → NEPE 13:46 → NEPFCDU 18:00
PROVIDERS: ADMIT Hospitalist; ATTEND Hospitalist

== ENCOUNTER 2017-12-22 17:54 | Inpatient (IN) ==
[2017-12-22] MEDS ORDERED: Aluminum/Magnesium/Simethacone Susp 30 ML UDC PO PRN ×2 (23:16→23:40)
[2017-12-22] MEDS ORDERED: Acetaminophen 325 MG Tablet PO PRN ×2 (23:16→23:40)
[2017-12-22 23:28] VITALS: RESP 16
[2017-12-23] MEDS: amLODIPine 5 MG Tablet PO SCH (08:12)
[2017-12-23] MEDS ORDERED: AZILSARTAN PO SCH (09:00)
[2017-12-23] MEDS ORDERED: CHLORTHALIDONE PO SCH (09:00)
[2017-12-23] MEDS: Lisinopril 10 MG Tablet PO SCH (09:19)
--- NOTE | 2017-12-23 13:02 | P.HPPSY ---
Provisional Diagnosis Admission Date: December 22, 2017 21:00 [place] I.: 1. Adjustment disorder with disturbance of emotions and conduct [place] II.: Deferred Competence Certification of Person's Competence To Provide Express and Informed Consent I have personally examined Michael Little, a person being served at [facility] on, December 23, 2017 1302. Express and informed consent means consent voluntarily given in writing, by a competent person, after sufficient explanation and disclosure of the subject matter involved to enable the person to make a knowing and willful decision without any element of force, fraud, deceit, duress, or other form of constraint or coercion. This person is 18 years of age or older, is not now known to be incompetent to consent to treatment with a guardian advocate, and does not have a health care surrogate or proxy currently making medical treatment decisions. I have found this person to be one of the following: [X] Competent to provide express and informed consent, as defined above, for voluntary admission to this facility and is competent to provide express and informed consent for treatment. He/she has the consistent capacity to make well reasoned, willful, and knowing decisions concerning his or her medical or mental health treatment. The person fully and consistently understands the purpose of the admission for examination/placement and is fully capable of personally exercising all rights assured under [place] Incompetent to provide express and informed consent to voluntary admission, and this is incompetent to provide express and informed consent to treatment. The person must be transferred to involuntary status and a petition for a guardian advocate filed with the Circuit Court. [] Refusing to provide express and informed consent to voluntary admission but is competent to provide express and informed consent for treatment. The person must be discharged or transferred to involuntary status. Form shall be completed within 24 hours of a person's arrival at the receiving facility and filed in the clinical record of each person: 1. Admitted on a voluntary basis 2. Permitted to provide express and informed consent to his/her own treatment 3. Allowed to transfer from involuntary to voluntary status 4. Prior to permitting a person to consent to his or her own treatment after having been previously found incompetent to consent to treatment. History of Present Illness Capacity: Has capacity Chief Complaint: Ingestion/overdose History of Present Illness: From my consult note: Mr. Little is a 42-year-old male with a reported childhood history of ADHD but no adult psychiatric history per his report who presented to the ED following an overdose on Ambien. It is documented in the ED provider notes that the patient took 15 Ambien intentionally in a suicide attempt. However according to the H&P from the medical attending, the patient reports that this ingestion was accidental. Patient was placed under Galarza act by the ED provider and placed in observation in the CDU. Reviewing the electronic medical record, I see no previous psychiatric contact within our system. Patient seen and examined. Chart reviewed. Case discussed with mid-level provider in the CDU. Sitter is at the bedside. On my examination today, the patient is calm and cooperative with exam. He tells me that he came home from work early and wanted to get some rest and so he took 3 extra Ambien CR 12.5 mg tablets. He says that he fell asleep and was subsequently discovered by his who reportedly had the patient brought in. He denies that ingestion was a suicide attempt. 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 He denies any depressive symptoms, nor can I elicit any hypomanic or manic symptoms. He denies any audiovisual hallucinations. I can elicit no delusional material. He does admit to chronic difficulties with sleep saying that he runs over business material in his head when he is trying to sleep. Remainder of the psychiatric ROS is negative. No acute physical complaints. Past psychiatric history: Patient reports a history of ADHD as a child. He says that he was seen by psychiatrists in this context as a child. He denies a history of psychiatric admissions or suicide attempts. Family history: Patient reports that his mother has depression. He denies a family history of substance use disorder or suicide. Chemical dependency history: The patient denies any abuse of drugs or alcohol. Social history: The patient lives with his . He has 4 children ages 21, 18 , 14 and 12. He has his GED and also trade school. 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 No reported PTSD symptoms. He denies any legal history. He does keep several firearms but has never had a suicide plan involving a gun. He is a Mandaen. With the patient's permission, I have obtained collateral information from his Uzma over the phone. Uzma is a somewhat reluctant historian saying "I worry that he is going to blame me. I do not want your decision to be based on her conversation." She reports that the patient did not take 3 Ambien but more likely took 25-27 Ambien. She thinks that he has been depressed recently. 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 She also notes that she does not think that he handles stress well. I spent about 23 minutes in telephone interview with Uzma. On my exam today, 12/23: Patient seen and examined with nurse. Chart reviewed. Case discussed with nursing staff. On my examination today, the patient continues to insist that he made a small overdose of Ambien. He reports that his was mistaken and that he was only given a half bottle and not a full bottle of Ambien by the pharmacist. He says that he gets this reduced quantity because his insurance will not pay for the full quantity. Nurse has in fact confirmed that the patient was only given 15 day supply of the Ambien, and so the quantity of his ingestion with therefore be similarly reduced. He says that he would like to work towards cutting out the Ambien. I did offer to work with him to identify a noncontrolled hypnotic, but the patient says that he would like to get away from all hypnotic medications. He does seem future oriented and denies SI or HI. Denies AVH. He is on BuSpar on an outpatient basis and says that he takes this "to help with stress." We discussed titrating dose of BuSpar somewhat in hopes that he might derive additional benefit from a larger dose, and the patient is agreeable to this. Remainder of the psychiatric ROS is negative. No acute physical complaints. Historical data obtained above is otherwise unchanged. - Inpatient Certification I certify that the inpatient services were ordered in accordance with Medicare regulations governing the order. This includes certification that hospital inpatient services are reasonable and necessary and in the case of services not specified as inpatient-only under 42 CFR 419.22(n), that they are appropriately provided as inpatient services in accordance to with the 2-midnight benchmark under 43 CFR 412.3(e) I certify that inpatient psychiatric hospital services are medically necessary. Evaluation and treatment and/or diagnostic testing are expected to improve the patient's condition. The patient needs on a daily basis, active treatment furnished directly by or requiring the supervision of inpatient psychiatric facility personnel. Estimated Total Length of Stay (Days): 3 (2-3) Plans for Post Hospital Care: Home Review of Systems All other systems reviewed negative except as stated in HPI [facility] - History History Provided By: Patient - Medical History Medical History: Medical History (Last Reviewed 12/23/17 @ 13:28 by FERNANDO Page) Anxiety Hypercholesteremia Hypertension - Surgical History Surgical History: Surgical History (Last Reviewed 12/23/17 @ 13:28 by FERNANDO Page) H/O elbow surgery - Family History Family History: Family History (Last Reviewed 12/23/17 @ 13:28 by FERNANDO Page) Mother Hypertension Throat cancer Mother Hyperlipidemia - Tobacco History Second Hand Smoke Exposure: No Tobacco Use In Past 30 Days: No Smoking Status: Never smoker - Alcohol History How Often Do You Have a Drink Containing Alcohol: Never - Substance Use History Substance History: No History of Abuse - Travel History Recent Travel in the USA Within the Last 8 Weeks: Yes Recent Travel Out of the Country Within the Last 8 Weeks: No - Immunization History Tetanus Immunization: Never Vaccinated Hx Influenza Vaccine This Season: No Quality Measures - Patient Strengths Patient's strengths (minimum of 2): Attending to basic needs. Verbally fluent. Medications and Allergies Active Medications: Active Medications Acetaminophen (Tylenol) 650 mg PO Q4H PRN PRN Reason: Pain 1-5 or Temp >101F Last Admin: 12/23/17 02:46 Dose: 650 mg Al Hydrox/Mg Hydrox/Simethicone (Mag-Al Plus Susp Liq) 30 ml PO Q6H PRN PRN Reason: DYSPEPSIA Al Hydroxide/Mg Hydroxide (Milk Of Magnesia Liq) 30 ml PO Q12H PRN PRN Reason: Mild Constipation Amlodipine Besylate (Norvasc) 5 mg PO DAILY [facility] Last Admin: 12/23/17 08:12 Dose: 5 mg Buspirone HCl (Buspar) 5 mg PO BID [facility] Last Admin: 12/23/17 08:12 Dose: 5 mg Diphenhydramine HCl (Benadryl) 50 mg PO HS PRN PRN Reason: INSOMNIA Diphenhydramine HCl (Benadryl Inj) 50 mg IM HS PRN PRN Reason: INSOMNIA Hydroxyzine HCl (Atarax) 50 mg PO Q6H PRN PRN Reason: ANXIETY Lisinopril (Prinivil) 10 mg PO DAILY [facility] Last Admin: 12/23/17 09:19 Dose: 10 mg Pat Own Med: Azilsartan- Chlorthalidone ( Edarbyclor) 40mg/25mg Tablet 0 each PO DAILY [facility] Allergies Allergy/AdvReac Type Severity Reaction Status Date / Time No Known Allergies Allergy Unverified 12/21/17 14:06 Home Medications Medication Instructions Recorded Confirmed Type amlodipine-benazepril 1 cap PO DAILY 12/21/17 12/21/17 History azilsartan med-chlorthalidone 1 tab PO DAILY 12/21/17 12/21/17 History [Edarbyclor] buspirone 5 mg PO BID 12/21/17 12/21/17 History montelukast 10 mg PO QPM 12/21/17 12/21/17 History tramadol 50 mg PO Q6H PRN 12/21/17 12/21/17 History Results - Labs Labs: Laboratory Tests 12/21/17 12/21/17 12/21/17 14:17 14:17 15:14 WBC Hgb Plt Count Sodium Potassium Chloride Carbon Dioxide BUN Creatinine Estimated GFR AST ALT Alkaline Phosphatase Total Creatine Kinase 122 Urine Opiates Screen Neg Ur Barbiturates Screen Neg Ur Amphetamines Screen Neg U Benzodiazepines Scrn Neg Urine Cocaine Screen Neg U Cannabinoids Screen Neg Serum Alcohol Less than 3 12/22/17 12/22/17 06:25 06:25 WBC 9.8 Hgb 14.6 Plt Count 240 Sodium 143 Potassium 3.6 Chloride 110 H Carbon Dioxide 23.4 BUN 11 Creatinine 1.12 Estimated GFR 71 L AST 23 ALT 31 Alkaline Phosphatase 68 Total Creatine Kinase Urine Opiates Screen Ur Barbiturates Screen Ur Amphetamines Screen U Benzodiazepines Scrn Urine Cocaine Screen U Cannabinoids Screen Serum Alcohol Labs reviewed. Besides somewhat decreased GFR, no clinically significant abnormalities noted. Exam Vital signs: Vital Signs 12/22/17 23:27 12/23/17 06:10 Temperature 98.4 F Pulse Rate 86 66 Respiratory Rate 16 16 Blood Pressure 161/84 H 153/83 H Pulse Oximetry 96 95 Intake & Output 12/22/17 12/23/17 12/23/17 18:59 06:59 18:59 Intake Total 360 / 360 Balance 360 / 360 Weight 105 kg Intake: Oral 360 / 360 Other: Weight On Admission 105 kg Mental Status Examination Appearance: Appropriate Consciousness: Alert Orientation: x4 Motor Activity: Normal gait Speech: Unremarkable Language: Adequate Fund of Knowledge: Adequate Attention and Concentration: Adequate Memory: Unremarkable Mood: Appropriate Affect: Appropriate Thought Process & Associations: Intact Thought Content: Appropriate Hallucination Type: None Delusion Type: None Suicidal Ideation: No Suicidal Plan: No Suicidal Intention: No Homicidal Ideation: No Homicidal Plan: No Homicidal Intention: No Mental Status Exam Remarks: Insight and judgment are unclear Assessment and Plan - Assessment (1) Adjustment disorder with mixed disturbance of emotions and conduct Code(s): F43.25 - Adjustment disorder with mixed disturbance of emotions and conduct Status: Acute - Plan Plan: 42-year-old male who presented initially with Ambien ingestion of unclear intent. Patient insists that ingestion was accidental, and we have obtained additional information from the patient's pharmacy today that the quantity of Ambien that he had in the bottle may have been only half as much as was originally believed, perhaps lending credence to the patient's narrative. The patient's expressed concern about the patient in my fairly extensive conversation yesterday, and it was largely on this basis that I decided to admit the patient to the inpatient psychiatric unit. I have instructed the counselor to obtain a broader base of collateral information to help stratify patients risk for self-harm going forward. I have already counseled the patient 's to secure the home environment of potential means of harm to self/ others. We will plan to observe the patient on the inpatient unit for impairments in safety and also for the purpose of obtaining additional collateral. Admit inpatient. Voluntary status. Titrate BuSpar to 10 mg twice daily. R/B/ A for medication discussed with patient. Vitals every shift. Counselor to see. Disposition planning. Estimated length of stay: 2-3 days. Justification for Continued Inpatient Stay: See above Discharge Planning: Pending outcome of observation. Request Healthcare Surrogate/Guardian Advocate?: No
--- NOTE | 2017-12-23 13:29 | P.CONIM ---
History of Present Illness Service: [facility] Consult date: 12/23/17 Requesting Physician: Familia Dueñas Reason for Consult: HTN Primary Care Provider: UNKNOWN History of Present Illness: 42 y/o with a history of chronic pain and HTN was originally admitted for an unintentional overdose of Ambien, he was discharged and admitted to the psych department for evaluation and clearance. [facility] was consulted for management of HTN. Patient evaluated in room, denies any chest pain, headaches or sob. He does stated he has chronic gastric pains that he takes tramadol for and would like one if possible. He is hoping to get discharged today. [facility] - History History Provided By: Patient - Medical History Medical History: Medical History (Last Reviewed 12/23/17 @ 13:28 by FERNANDO Page) Anxiety Hypercholesteremia Hypertension - Surgical History Surgical History: Surgical History (Last Reviewed 12/23/17 @ 13:28 by FERNANDO Page) H/O elbow surgery - Family History Family History: Family History (Last Reviewed 12/23/17 @ 13:28 by FERNANDO Page) Mother Hypertension Throat cancer Mother Hyperlipidemia - Social History I have reviewed the patient's Social History: Yes - Tobacco History Second Hand Smoke Exposure: No Tobacco Use In Past 30 Days: No Smoking Status: Never smoker - Alcohol History How Often Do You Have a Drink Containing Alcohol: Never - Substance Use History Substance History: No History of Abuse - Travel History Recent Travel in the [place] Within the Last 8 Weeks: Yes Recent Travel Out of the Country Within the Last 8 Weeks: No - Immunization History Tetanus Immunization: Never Vaccinated Hx Influenza Vaccine This Season: No Medications and Allergies Active Medications: Active Medications Acetaminophen (Tylenol) 650 mg PO Q4H PRN PRN Reason: Pain 1-5 or Temp >101F Last Admin: 12/23/17 02:46 Dose: 650 mg Al Hydrox/Mg Hydrox/Simethicone (Mag-Al Plus Susp Liq) 30 ml PO Q6H PRN PRN Reason: DYSPEPSIA Al Hydroxide/Mg Hydroxide (Milk Of Magnesia Liq) 30 ml PO Q12H PRN PRN Reason: Mild Constipation Amlodipine Besylate (Norvasc) 5 mg PO DAILY [facility] Last Admin: 12/23/17 08:12 Dose: 5 mg Buspirone HCl (Buspar) 10 mg PO BID [facility] Lisinopril (Prinivil) 10 mg PO DAILY [facility] Last Admin: 12/23/17 09:19 Dose: 10 mg Pat Own Med: Azilsartan- Chlorthalidone ( Edarbyclor) 40mg/25mg Tablet 0 each PO DAILY [facility] Tramadol HCl (Ultram) 50 mg PO Q8H PRN PRN Reason: Pain Allergies Allergy/AdvReac Type Severity Reaction Status Date / Time No Known Allergies Allergy Unverified 12/21/17 14:06 Home Medications Medication Instructions Recorded Confirmed Type amlodipine-benazepril 1 cap PO DAILY 12/21/17 12/21/17 History azilsartan med-chlorthalidone 1 tab PO DAILY 12/21/17 12/21/17 History [Edarbyclor] buspirone 5 mg PO BID 12/21/17 12/21/17 History montelukast 10 mg PO QPM 12/21/17 12/21/17 History tramadol 50 mg PO Q6H PRN 12/21/17 12/21/17 History Exam Vital signs: Vital Signs 12/22/17 23:27 12/23/17 06:10 Temperature 98.4 F Pulse Rate 86 66 Respiratory Rate 16 16 Blood Pressure 161/84 H 153/83 H Pulse Oximetry 96 95 Intake & Output 12/22/17 12/23/17 12/23/17 18:59 06:59 18:59 Intake Total 360 / 360 Balance 360 / 360 Weight 105 kg Intake: Oral 360 / 360 Other: Weight On Admission 105 kg Narrative: GENERAL: This is a well-nourished, well-developed patient, in no apparent distress. CARDIOVASCULAR: Regular rate and rhythm without murmurs, gallops, or rubs. RESPIRATORY: Clear to auscultation. Breath sounds equal bilaterally. No wheezes , rales, or rhonchi. GASTROINTESTINAL: Abdomen soft, non-tender, nondistended. Normal active bowel sounds MUSCULOSKELETAL: Extremities without clubbing, cyanosis, or edema. NEURO: Alert & Oriented x4 to person, place, time, situation. 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
[2017-12-24 05:30] VITALS: BP 137/69; PULSE 59; TEMP 97.4; O2SAT 96
[2017-12-24] MEDS: amLODIPine 5 MG Tablet PO SCH (08:23)
[2017-12-24] MEDS: Lisinopril 10 MG Tablet PO SCH (08:23)
--- NOTE | 2017-12-24 09:20 | P.DSPSY ---
Psychiatry Discharge Summary Inpatient Psychiatric care?: Yes Advance Directives: Yes Mental Health Advance Directive: No Health Care Proxy: No - Admission Admission Date: December 22, 2017 21:00 - Admission Diagnosis (1) Adjustment disorder with mixed disturbance of emotions and conduct Code(s): F43.25 - Adjustment disorder with mixed disturbance of emotions and conduct Brief History: From my consult note: Mr. Little is a 42-year-old male with a reported childhood history of ADHD but no adult psychiatric history per his report who presented to the ED following an overdose on Ambien. It is documented in the ED provider notes that the patient took 15 Ambien intentionally in a suicide attempt. However according to the H&P from the medical attending, the patient reports that this ingestion was accidental. Patient was placed under Galarza act by the ED provider and placed in observation in the CDU. Reviewing the electronic medical record, I see no previous psychiatric contact within our system. Patient seen and examined. Chart reviewed. Case discussed with mid-level provider in the CDU. Sitter is at the bedside. On my examination today, the patient is calm and cooperative with exam. He tells me that he came home from work early and wanted to get some rest and so he took 3 extra Ambien CR 12.5 mg tablets. He says that he fell asleep and was subsequently discovered by his who reportedly had the patient brought in. He denies that ingestion was a suicide attempt. 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 He denies any depressive symptoms, nor can I elicit any hypomanic or manic symptoms. He denies any audiovisual hallucinations. I can elicit no delusional material. He does admit to chronic difficulties with sleep saying that he runs over business material in his head when he is trying to sleep. Remainder of the psychiatric ROS is negative. No acute physical complaints. Past psychiatric history: Patient reports a history of ADHD as a child. He says that he was seen by psychiatrists in this context as a child. He denies a history of psychiatric admissions or suicide attempts. Family history: Patient reports that his mother has depression. He denies a family history of substance use disorder or suicide. Chemical dependency history: The patient denies any abuse of drugs or alcohol. Social history: The patient lives with his . He has 4 children ages 21, 18 , 14 and 12. He has his GED and also trade school. 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 No reported PTSD symptoms. He denies any legal history. He does keep several firearms but has never had a suicide plan involving a gun. He is a [employer]. With the patient's permission, I have obtained collateral information from his Uzma over the phone. Uzma is a somewhat reluctant historian saying "I worry that he is going to blame me. I do not want your decision to be based on her conversation." She reports that the patient did not take 3 Ambien but more likely took 25-27 Ambien. She thinks that he has been depressed recently. 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 She also notes that she does not think that he handles stress well. I spent about 23 minutes in telephone interview with Uzma. On my exam today, 12/23: Patient seen and examined with nurse. Chart reviewed. Case discussed with nursing staff. On my examination today, the patient continues to insist that he made a small overdose of Ambien. He reports that his was mistaken and that he was only given a half bottle and not a full bottle of Ambien by the pharmacist. He says that he gets this reduced quantity because his insurance will not pay for the full quantity. Nurse has in fact confirmed that the patient was only given 15 day supply of the Ambien, and so the quantity of his ingestion with therefore be similarly reduced. He says that he would like to work towards cutting out the Ambien. I did offer to work with him to identify a noncontrolled hypnotic, but the patient says that he would like to get away from all hypnotic medications. He does seem future oriented and denies SI or HI. Denies AVH. He is on BuSpar on an outpatient basis and says that he takes this "to help with stress." We discussed titrating dose of BuSpar somewhat in hopes that he might derive additional benefit from a larger dose, and the patient is agreeable to this. Remainder of the psychiatric ROS is negative. No acute physical complaints. Historical data obtained above is otherwise unchanged. Tobacco Use In Past 30 Days: No How Often Do You Have a Drink Containing Alcohol: Never Hospital Course: Patient was admitted to a locked, inpatient psychiatric unit. A general medical consultation was obtained. Appropriate precautions were in place throughout patient's hospital stay. Patient was seen and examined on the unit by psychiatry and also visited by counselor. Psychotropic medications were adjusted. Patient tolerated medication changes well without side effects. There was no evidence of any suicidality or homicidality on the inpatient unit. There was no evidence of self-care deficit. Counselor has obtained reassuring collateral from patient's chief business officer and . On the day of discharge: Patient seen and examined. Chart reviewed. Case discussed with nursing staff. No behavioral issues noted overnight. On my examination today, the patient is requesting discharge from the inpatient psychiatric unit today. His Galarza act will this afternoon. He denies any suicidal or homicidal ideation, intent or plan. I can elicit no depressive or hypomanic/manic symptoms. He denies any audiovisual hallucinations. I can elicit no delusional beliefs. He denies any side effects from medications. No physical complaints. Weighing the relevant factors and based on the available evidence, I cleaning handyman that the patient does not meet criteria for involuntary psychiatric hospitalization at this time. There is no evidence of imminent risk of harm to self or others, and the patient's level of function is adequate for outpatient care. The patient is requesting discharge from the inpatient psychiatric unit today, and I have no basis to retain him over his objection. Patient will be discharged home today with psychiatric follow-up as arranged by counselor. Patient is also to follow up with primary care. I have counseled the patient regarding warning signs for need to return to the psychiatric emergency room as part of a general safety plan. - Discharge Discharge Date: 12/24/17 - Discharge Diagnosis (1) Adjustment disorder with mixed disturbance of emotions and conduct Code(s): F43.25 - Adjustment disorder with mixed disturbance of emotions and conduct Status: Resolved Discharge Disposition: Home - Discharge Instructions Discharge Diet: Regular Diet Activities You Can Perform: Weight Bearing As Tolerat - Discharge Time <= 30 minutes Mental Status Examination Appearance: Appropriate Consciousness: Alert Orientation: x4 Motor Activity: Normal gait, Other (No motor abnormalities noted) Speech: Unremarkable Language: Adequate Fund of Knowledge: Adequate Attention and Concentration: Adequate Memory: Unremarkable Mood: Appropriate Affect: Appropriate, Euthymic Thought Process & Associations: Intact, Logical, Goal directed, Linear Thought Content: Appropriate Hallucination Type: None Delusion Type: None Suicidal Ideation: No Suicidal Plan: No Suicidal Intention: No Homicidal Ideation: No Homicidal Plan: No Homicidal Intention: No Mental Status Exam Remarks: Insight and judgment are perhaps fair Discharge/Advance Care Plan - Results Vital Signs: Last Vital Signs Temp 97.4 F L 12/24/17 07:23 Pulse 59 L 12/24/17 07:23 Resp 16 12/24/17 07:23 BP 137/69 12/24/17 07:23 Pulse Ox 96 12/24/17 07:23 Lab Results: Labs performed in CDU, q.v. Summary of Procedures: None done. Pending Results: None - Medications Number of antipsychotic medications at discharge: 0 - Discharge Care Plan Goals to Promote Your Health: * To prevent worsening of your condition and complications * To maintain your health at the optimal level Directions to Meet Your Goals: Take your medications as prescribed Follow your dietary instruction Follow activity as directed Keep your appointments as scheduled Take your immunizations and boosters as scheduled If your symptoms worsen call your PCP, if no PCP go to Urgent Care Center or Emergency Room For 27/10 questions related to your inpatient stay or results of tests pending at discharge, please contact Dr. Mj Alvarado MD at [phone] Smoking is Dangerous to Your Health. Avoid second hand smoking
== END 2017-12-24 13:05 | disposition home or self-care (01) ==
LOC: H260 21:00
PROVIDERS: ADMIT Psychiatry & Neurology Psychiatry; ATTEND Psychiatry & Neurology Psychiatry